=== PATIENT | female | born 1930 | race Caucasian/White ===

== ENCOUNTER → 2016-10-31 12:48 | Outpatient (CLI) | payer MEDICARE, MEDICAID ==
[2015-09-20 14:01] VITALS: BMI 33.4
[~2016-10-31 12:48] MED LIST: ACIDOPHILUS LAC1 CAP PO; AMOXICILLIN875 MG PO; ANTIVERT25 MG PO; AUGMENTIN 875-11 TAB PO; BENADRYL 2% CRE30 GM TOPICAL; CALAN SR180 MG PO; CEFTRIAXON500 MG/VIA IM; CEREFOLIN TAB1 TAB PO; COLACE100 MG PO; CORDARONE200 MG PO; CYCLOBENZAPRINE10 MG PO; GUAIFENESI100 MG/5 M PO; HEALTHYLAX17 GM PO; IPRAT-ALBUT 0.5-3 ML INH; LASIX40 MG; LEVAQUIN250 MG PO; LOPRESSOR50 MG PO; MELATONIN 3 MG1 TAB PO; MIRAPEX0.125 MG PO; NORCO 10/325 TA1 TA1 PO; PLAVIX75 MG PO; POTASSIUM CHLO10 ME1 PO; PREMARIN1.25 MG PO; Rocephin INJ IM; ST JOSEPH ASPIR81 MG PO; VIT D PO; VITAMIN D5000 UNIT PO; XANAX0.5 MG PO; ZANTAC150 MG PO; ZYLOPRIM100 MG PO; [UNRECOGNIZED DRUG - OTHER] PO
== END | disposition home or self-care (01) ==
LOC: D.RAD 12:48
DX: R13.12 Dysphagia, oropharyngeal phase (principal)

== ENCOUNTER 2017-02-22 12:22 | Outpatient (CLI) | payer MEDICARE ==
[2017-02-22 12:53] VITALS: BP 117/80; Ht 149.9 cm
--- NOTE | 2017-02-22 13:42 | NUR ---
TO BED VIA JANAK LIFT. POLY ESQUIVEL,MATHEW IS AWARE OF NEED FOR PICC LINE AND WILL BE HERE SHORLTY. PROJECT OFFICER FROM [facility] WITH PATIENT. SIDE RAILS X 2 UP.
--- NOTE | 2017-02-22 14:00 | NUR ---
POLY HERE AND PLACED PICC LINE, TOLERATED WELL.
--- NOTE | 2017-02-22 15:00 | NUR ---
CXR OK PER POLY ESQUIVEL RN. DISCHARGE INSTRUCTIONS GIVEN. REPORT COPIED FOR [facility]. BROCHURE GIVEN ON PICC.
== END 2017-02-22 15:05 ==
LOC: D.OPS 12:22
DX: Z79.2 Long term (current) use of antibiotics (principal)

== ENCOUNTER → 2017-10-04 13:33 | Outpatient (CLI) | payer MEDICARE | END | disposition home or self-care (01) | LOC: D.OPS 13:33 | DX: L03.032 Cellulitis of left toe (principal); N18.2 Chronic kidney disease, stage 2 (mild); I48.91 Unspecified atrial fibrillation ==

== ENCOUNTER 2018-04-24 22:37 | Inpatient (IN) | payer MEDICARE ==
[~2018-04-24] VITALS: Ht 149.9 cm; Wt 63.5 kg
[2018-04-25] VITALS (14 sets, daily range): BP systolic 93–160; BP diastolic 47–64
[2018-04-25 00:16] LABS: APPEARANCE HAZY (CLEAR); BILIRUBIN NEGATIVE (NEGATIVE); COLOR YELLOW (YELLOW); GLUCOSE NEGATIVE (NEGATIVE); KETONE NEGATIVE (NEGATIVE); NITRITE POSITIVE (NEGATIVE); PROTEIN TRACE mg/dL (NEGATIVE); SPECIFIC GRAVITY 1.015 (1.005-1.020); UROBILINOGEN NORMAL (NORMAL)
[2018-04-25 00:17] LABS: BACTERIA MANY /hpf (NONE SEEN); EPITHELIAL CELLS NSEEN /hpf (0-5); WHITE CELLS - URINE >50 /hpf (0-5)
[2018-04-25 00:35] LABS: BASOPHILS 0.2 % (0-2); EOSINOPHILS 0.4 % (0-7); HEMATOCRIT 38.3 % (36.0-48.0); HEMOGLOBIN 11.9 g/dL (12-16); IMMATURE GRANULOCYTES 0.3 % (0-5); LYMPHOCYTES 14.1 % (15-50); MCH 27.5 pg (26.0-34.0); MCHC 31.1 g/dL (31.0-37.0); MCV 88.5 fL (80.0-100.0); MEAN PLATELET VOLUME 11.1 fL (7.4-10.4); MONOCYTES 8.6 % (2-11); NEUTROPHILS 76.4 % (40-80); RBC 4.33 10x6/uL (4.00-5.40); RDW 16.8 % (11.5-14.5); WBC 17.3 10x3/uL (4.8-10.8)
[2018-04-25 00:37] LABS: PLATELET COUNT 240 10x3/uL (130-400)
[2018-04-25 01:01] LABS: ALBUMIN 2.4 g/dL (3.4-5.0); ANION GAP 11.9 mmol/L (8-16); BILIRUBIN - TOTAL 0.7 mg/dL (0.2-1.3); CALCIUM 8.9 mg/dL (8.5-10.1); CARBON DIOXIDE 29.4 mmol/L (21.0-32.0); POTASSIUM - SERUM 4.3 mmol/L (3.5-5.1); PROTEIN - SERUM 7.6 g/dL (6.4-8.2)
[2018-04-25 17:30] LABS: BASOPHILS 0.2 % (0-2); EOSINOPHILS 0.8 % (0-7); HEMOGLOBIN 10.5 g/dL (12-16); IMMATURE GRANULOCYTES 0.3 % (0-5); LYMPHOCYTES 20.1 % (15-50); MCH 27.1 pg (26.0-34.0); MCHC 30.9 g/dL (31.0-37.0); MCV 87.6 fL (80.0-100.0); MEAN PLATELET VOLUME 10.5 fL (7.4-10.4); MONOCYTES 4.9 % (2-11); NEUTROPHILS 73.7 % (40-80); PLATELET COUNT 243 10x3/uL (130-400); RBC 3.88 10x6/uL (4.00-5.40); RDW 16.9 % (11.5-14.5)
[2018-04-25 17:40] LABS: WBC 9.5 10x3/uL (4.8-10.8)
[2018-04-25 17:50] LABS: ANION GAP 15.5 mmol/L (8-16); CALCIUM 8.2 mg/dL (8.5-10.1); CARBON DIOXIDE 23.8 mmol/L (21.0-32.0); CREATININE - SERUM 1.6 mg/dL (0.6-1.3); POTASSIUM - SERUM 4.3 mmol/L (3.5-5.1)
[2018-04-26] VITALS: BP 153/44
[2018-04-26 02:11] VITALS: BP 153/44; BMI 28.3
[2018-04-26 04:00] VITALS: BP 120/45
[2018-04-26 04:56] LABS: BASOPHILS 0.3 % (0-2); EOSINOPHILS 0.9 % (0-7); HEMATOCRIT 30.7 % (36.0-48.0); HEMOGLOBIN 9.5 g/dL (12-16); IMMATURE GRANULOCYTES 0.3 % (0-5); LYMPHOCYTES 19.1 % (15-50); MCH 27.3 pg (26.0-34.0); MCHC 30.9 g/dL (31.0-37.0); MCV 88.2 fL (80.0-100.0); MEAN PLATELET VOLUME 10.8 fL (7.4-10.4); MONOCYTES 6.5 % (2-11); NEUTROPHILS 72.9 % (40-80); PLATELET COUNT 253 10x3/uL (130-400); RBC 3.48 10x6/uL (4.00-5.40); RDW 16.6 % (11.5-14.5)
[2018-04-26 05:02] LABS: WBC 6.8 10x3/uL (4.8-10.8)
[2018-04-26 05:12] LABS: ALBUMIN 1.9 g/dL (3.4-5.0); BILIRUBIN - TOTAL 0.34 mg/dL (0.2-1.3); CALCIUM 8.7 mg/dL (8.5-10.1); CARBON DIOXIDE 25.6 mmol/L (21.0-32.0); CREATININE - SERUM 1.6 mg/dL (0.6-1.3); PROTEIN - SERUM 6.3 g/dL (6.4-8.2); VANCOMYCIN - RANDOM 11.3 ug/mL (10.0-20.0)
[2018-04-26 05:13] LABS: POTASSIUM - SERUM 3.6 mmol/L (3.5-5.1)
[2018-04-26 10:05] VITALS: Ht 149.9 cm; Wt 63.5 kg
[2018-04-26 10:22] VITALS: BP 151/56
[2018-04-26 16:14] VITALS: BP 130/62
[2018-04-26 22:54] VITALS: BP 160/60
[2018-04-27 01:34] VITALS: BP 150/60
[2018-04-27 05:00] VITALS: BP 155/56
[2018-04-27 08:38] VITALS: BP 139/89
[2018-04-27 12:09] VITALS: BP 140/80
[2018-04-27 15:23] VITALS: BP 153/58
[2018-04-27 20:00] VITALS: BP 152/81
[2018-04-28 04:51] VITALS: BP 126/69
[2018-04-28 09:28] VITALS: BP 134/42
[2018-04-28 13:25] VITALS: BP 151/42
[2018-04-28 20:00] VITALS: BP 131/47
[2018-04-29] VITALS: BP 153/50
[2018-04-29 06:30] VITALS: BP 141/50
[2018-04-29 06:30] LABS: ANION GAP 13.2 mmol/L (8-16); CALCIUM 8.4 mg/dL (8.5-10.1); CARBON DIOXIDE 23.9 mmol/L (21.0-32.0); CREATININE - SERUM 1.1 mg/dL (0.6-1.3); POTASSIUM - SERUM 3.1 mmol/L (3.5-5.1)
[2018-04-29 06:59] LABS: BASOPHILS 0.2 % (0-2); EOSINOPHILS 4.1 % (0-7); HEMATOCRIT 29.6 % (36.0-48.0); HEMOGLOBIN 9.3 g/dL (12-16); IMMATURE GRANULOCYTES 0.5 % (0-5); LYMPHOCYTES 17.7 % (15-50); MCH 27.2 pg (26.0-34.0); MCHC 31.4 g/dL (31.0-37.0); MCV 86.5 fL (80.0-100.0); MEAN PLATELET VOLUME 10.5 fL (7.4-10.4); MONOCYTES 5.5 % (2-11); PLATELET COUNT 265 10x3/uL (130-400); RBC 3.42 10x6/uL (4.00-5.40); RDW 16.9 % (11.5-14.5); WBC 8.4 10x3/uL (4.8-10.8)
[2018-04-29 08:05] VITALS: BP 157/45
[2018-04-29 11:41] VITALS: BP 153/67
[2018-04-29 15:48] VITALS: BP 119/50
[2018-04-30 03:55] VITALS: BP 152/59
[2018-04-30 08:28] VITALS: BP 122/56
[2018-04-30 12:08] VITALS: BP 132/46
[2018-04-30] MEDS ORDERED: INVANZ 1 GM/NS 11 G1 IM (14:05)
[2018-04-30] MEDS ORDERED: METOPROLOL TART50 MG PO (14:06)
[2018-04-30] MEDS ORDERED: MELATONIN 3 MG1 TAB PO (14:08)
[2018-04-30 16:09] VITALS: BP 125/77
== END 2018-04-30 16:59 | DRG 871 ==
LOC: D.ER 22:37 → D.MS 04-25 03:42 → D.EDHOLD 04-25 03:42 → D.MS 04-25 21:26
PROVIDERS: Family Medicine
DX: A41.1 Sepsis due to other specified staphylococcus (principal); R53.2 Functional quadriplegia; N39.0 Urinary tract infection, site not specified; E86.0 Dehydration; I25.10 Atherosclerotic heart disease of native coronary artery without angina pectoris; I12.9 Hypertensive chronic kidney disease with stage 1 through stage 4 chronic kidney disease, or unspecified chronic kidney disease; N18.9 Chronic kidney disease, unspecified; Z89.612 Acquired absence of left leg above knee; Z89.611 Acquired absence of right leg above knee; G30.9 Alzheimer's disease, unspecified; F02.80 Dementia in other diseases classified elsewhere, unspecified severity, without behavioral disturbance, psychotic disturbance, mood disturbance, and anxiety; D64.9 Anemia, unspecified; G47.00 Insomnia, unspecified

== ENCOUNTER 2018-06-28 00:49 | Emergency (ER) | payer MEDICARE ==
[~2018-06-28] VITALS: Ht 149.9 cm; Wt 45.5 kg
[~2018-06-28 00:49] MED LIST changes: +INVANZ 1 GM/NS 11 G1 IM; +METOPROLOL TART50 MG PO
[2018-06-28 00:52] VITALS: Ht 149.9 cm; Wt 45.5 kg
[2018-06-28] MEDS ORDERED: K-TAB10 MEQ PO (01:09)
[2018-06-28] MEDS ORDERED: MACROBID100 MG PO (01:11)
[2018-06-28] MEDS ORDERED: PLAVIX75 MG PO (01:15)
[2018-06-28 01:59] LABS: BASOPHILS 0.2 % (0-2); EOSINOPHILS 3.2 % (0-7); HEMATOCRIT 40.1 % (36.0-48.0); HEMOGLOBIN 12.7 g/dL (12-16); IMMATURE GRANULOCYTES 0.3 % (0-5); LYMPHOCYTES 23.3 % (15-50); MCH 26.3 pg (26.0-34.0); MCHC 31.7 g/dL (31.0-37.0); MCV 83.2 fL (80.0-100.0); MEAN PLATELET VOLUME 10.1 fL (7.4-10.4); MONOCYTES 7.2 % (2-11); NEUTROPHILS 65.8 % (40-80); RBC 4.82 10x6/uL (4.00-5.40); WBC 10.5 10x3/uL (4.8-10.8)
[2018-06-28 02:04] LABS: PLATELET COUNT 329 10x3/uL (130-400)
[2018-06-28 02:11] LABS: APTT 25.3 SECONDS (22.8-39.4); INR 1.04 (0.85-1.17); PROTIME 13.2 SECONDS (11.6-15.0)
[2018-06-28 02:26] LABS: ALBUMIN 2.8 g/dL (3.4-5.0); ANION GAP 9.4 mmol/L (8-16); BILIRUBIN - TOTAL 0.25 mg/dL (0.2-1.3); CALCIUM 8.4 mg/dL (8.5-10.1); CARBON DIOXIDE 29.9 mmol/L (21.0-32.0); CREATININE - SERUM 1.3 mg/dL (0.6-1.3); POTASSIUM - SERUM 4.3 mmol/L (3.5-5.1); PROTEIN - SERUM 7.4 g/dL (6.4-8.2)
[2018-06-28 03:24] VITALS: BP 97/78
== END 2018-06-28 03:19 ==
LOC: D.ER 00:49
PROVIDERS: Emergency Medicine
DX: S70.02XA Contusion of left hip, initial encounter (principal); S40.012A Contusion of left shoulder, initial encounter; W18.30XA Fall on same level, unspecified, initial encounter; Y93.89 Activity, other specified; Y92.129 Unspecified place in nursing home as the place of occurrence of the external cause; Z95.0 Presence of cardiac pacemaker; I48.91 Unspecified atrial fibrillation; G30.9 Alzheimer's disease, unspecified; F02.80 Dementia in other diseases classified elsewhere, unspecified severity, without behavioral disturbance, psychotic disturbance, mood disturbance, and anxiety; I25.10 Atherosclerotic heart disease of native coronary artery without angina pectoris; I12.9 Hypertensive chronic kidney disease with stage 1 through stage 4 chronic kidney disease, or unspecified chronic kidney disease; N18.9 Chronic kidney disease, unspecified; Z89.612 Acquired absence of left leg above knee; Z89.611 Acquired absence of right leg above knee